=== PATIENT | female | born 1950 ===

== ENCOUNTER 2017-09-05 07:42 | Day surgery (SDC) | payer MEDICARE, BC ==
[2017-09-01 10:35] VITALS: BMI 28.3
[2017-09-05] MEDS ORDERED: Midazolam 2 MG/2 ML VIAL ONE (11:51)
[2017-09-05] MEDS ORDERED: Propofol 10 mg/ml Inj (20 ML) ONE (11:51)
[2017-09-05] MEDS ORDERED: Sodium Chloride 0.9% 1,000 ML IV ONE ×2 (12:08→13:19)
[2017-09-05] MEDS ORDERED: Lactated Ringer's 1,000 ML IV ONE (12:08)
[2017-09-05] MEDS ORDERED: Vancomycin 1 gm/D5W 200 ml 1 GM/200 ML BAG IVPB ONE (12:08)
[2017-09-05] MEDS ORDERED: Rocuronium 10 mg/ml (5 ml) ONE (12:34)
[2017-09-05] MEDS ORDERED: Succinylcholine Chloride 20 mg/ml Syr (5 ml) IV ONE (12:34)
[2017-09-05] MEDS ORDERED: Bupivacaine HCl 0.5% PF (10 ml) Inj ONE (12:40)
--- NOTE | 2017-09-05 13:24 | PCM.SURG1 ---
Surgeon's Initial Post Op Note - Surgeon's Notes Surgeon: Dr. Chamberlain Director Of Ancillary Services: Kaleb PGY1 Type of Anesthesia: General Endo Anesthesia Administered By: Dr. Bocanegra Pre-Operative Diagnosis: L breast mass Operative Findings: see operative report Post-Operative Diagnosis: L breast mass Operation Performed: Partial Mastectomy Specimen/Specimens Removed: L breast mass Estimated Blood Loss: EBL {In ML}: 5 Blood Products Given: N/A Drains Used: No Drains Post-Op Condition: Good Date of Surgery/Procedure: 09/05/17 Time of Surgery/Procedure: 12:00
[2017-09-05] MEDS ORDERED: Oxycodone/Acetaminophen 5/325 mg Tab PO PRN (13:25)
[2017-09-05] MEDS ORDERED: DiphenhydrAMINE 50 mg/ml Inj IVP PRN (15:28)
[2017-09-05 17:24] VITALS: BP 110/72; PULSE 72; RESP 18; TEMP 98; O2SAT 100
--- NOTE | 2017-09-08 06:42 | OP ---
PROCEDURE DATE: 09/05/2017 PREOPERATIVE DIAGNOSIS: Ductal carcinoma in situ, left breast. POSTOPERATIVE DIAGNOSIS: Ductal carcinoma in situ, left breast. PROCEDURE PERFORMED: Partial mastectomy, extended lumpectomy. FINDINGS: There is a guidewire introduced by the Radiology Department in the upper inner aspect of the left breast, going right through the calcified area and this was through needle localization. DESCRIPTION OF PROCEDURE: Under general anesthesia, the patient was prepared and draped in sterile fashion. An incision was made along the track of the wire that was extended down to the subcutaneous tissue. Flaps were developed on both sides. Then, the underlying indurated tissue was excised together with the clip and the wire. Bleeding was controlled with electrocautery. Then, the wound was closed in layers utilizing sutures of 2-0 Vicryl and skin sutures of 4-0 Monocryl. Estimated blood loss about 10 mL. No complications. Darren Chamberlain MD
== END 2017-09-05 18:01 | disposition home or self-care (01) ==
LOC: C.SDS 07:42
PROVIDERS: ATTEND Surgery
DX: D05.12 Intraductal carcinoma in situ of left breast (principal)
CPT/HCPCS: 19281; 19301; 88307; J1100; J1170; J1200; J2001; J2250; J2405; J2704; J3010; J3370; J7040